=== PATIENT | female | born 1940 | race Caucasian/White ===

== ENCOUNTER 2016-01-28 08:30 | Inpatient (IN) | payer MEDICARE ==
[~2016-01-28] VITALS: Ht 162.6 cm; Wt 104.5 kg
[2016-04-20] MEDS ORDERED: TRIA37.53 PO (11:51)
[2016-04-20] MEDS ORDERED: VENTAER INH (11:51)
[2016-04-20] MEDS ORDERED: VALA500T PO (11:51)
[2016-04-20] MEDS ORDERED: CLAR10CA3 PO (11:51)
[2016-04-20] MEDS ORDERED: MONT10TA4 PO (11:51)
[2016-04-20] MEDS ORDERED: OMEP20TA PO (11:51)
[2016-04-20] MEDS ORDERED: ATOR10TA15 PO (12:06)
[2016-04-20] MEDS ORDERED: ZOLP5TAB3 PO (12:06)
[2016-04-20] MEDS ORDERED: POTA10CA PO (12:06)
[2016-04-21] MEDS: SODIUM CHLORID 0.9% 500 ML IV SCH (09:00)
[2016-04-21] MEDS ORDERED: ceFAZolin 2 GM PREMIX 50 ML IV SCH (09:30)
[2016-04-21] MEDS ORDERED: METOPROLOL TARTRATE 25 MG TAB PO PRN (09:30)
[2016-04-21] MEDS ORDERED: DEXAMETHASONE SOD PHOS 20 MG/5 ML VIAL IV SCH (09:30)
[2016-04-21] MEDS ORDERED: VANCOMYCIN 1000 MG/NS 250 ML (for <70 kg) IV SCH ×2 (09:30)
[2016-04-21] MEDS: POVIDONE IODINE 7.5% SCRUB 118 ML BOTTLE TOP SCH (09:30)
[2016-04-21] MEDS ORDERED: INSULIN HUMAN REGULAR 1,000 UNITS/10 ML VIAL SQ PRN (09:30)
[2016-04-21] MEDS ORDERED: ACET1CAP18 PO (09:57)
[2016-04-21 10:10] VITALS: BP 147/87; PULSE 94; RESP 16; TEMP 97.9; O2SAT 94
[2016-04-21] MEDS: LACTATED RINGER'S 1000 ML IV SCH (10:15)
[2016-04-21] MEDS ORDERED: GENTAMICIN SULFATE 80 MG/2 ML VIAL ONE (10:48)
[2016-04-21] MEDS ORDERED: FAMOTIDINE 20 MG/2 ML VIAL ONE (10:51)
[2016-04-21] MEDS: TRANEXAMIC ACID IV SCH ×2 (11:00→11:06)
[2016-04-21] MEDS: SODIUM CHLORIDE 0.9% IV SCH ×2 (11:00→11:06)
[2016-04-21] MEDS: ROPIVACAINE PERI-ARTICULAR INJECTION. PERIART SCH ×10 (11:00→11:47)
[2016-04-21] MEDS ORDERED: BUPIVACAINE LIPOSOME PF 1.3% 20 ML VIAL ONE (11:46)
[2016-04-21] MEDS ORDERED: SUGAMMADEX SODIUM 200 MG/2 ML VIAL IV PUSH ONE ×2 (12:17)
[2016-04-21] MEDS ORDERED: ACETAMINOPHEN 1000 MG/100 ML VIAL IV ONE (12:17)
[2016-04-21] MEDS ORDERED: PROPOFOL 200 MG/20 ML AMP IV ONE (12:27)
[2016-04-21] MEDS ORDERED: LACTATED RINGER'S 1000 ML INJ 1,000 ML IV ONE (12:27)
[2016-04-21] MEDS ORDERED: ONDANSETRON HCL 4 MG/2 ML VIAL IV PUSH ONE (12:27)
[2016-04-21] MEDS ORDERED: NALOXONE HCL 0.4 MG/ML AMP IV PRN (12:45)
[2016-04-21] MEDS ORDERED: diphenhydrAMINE HCL 50 MG/ML VIAL IV PRN (12:45)
[2016-04-21] MEDS ORDERED: MAGNESIUM HYDROXIDE SUSP 30 ML CUP PO PRN (12:45)
[2016-04-21] MEDS ORDERED: ALBUTEROL SULFATE 90 MCG/ACT HFA 8 GM INHALER INH PRN (12:45)
[2016-04-21] MEDS ORDERED: SODIUM CHLORIDE 0.9% FLUSH 5 ML FLUSH IVF PRN (12:45)
[2016-04-21] MEDS ORDERED: MORPHINE SULFATE 4 MG/ML INJ IV PUSH PRN (12:45)
[2016-04-21] MEDS ORDERED: oxyCODONE/ACETAMINOPHEN 5 MG/325 MG TAB PO PRN (12:45)
[2016-04-21] MEDS ORDERED: BISACODYL 10 MG SUPP PR PRN (12:45)
[2016-04-21] MEDS ORDERED: Post-op Orders (for Pharmacy) MISC XX ONE (12:45)
[2016-04-21] MEDS ORDERED: ONDANSETRON HCL 4 MG/2 ML VIAL IVP PRN (12:45)
[2016-04-21] MEDS ORDERED: ALUMINUM/MAGNESIUM/SIMETH 30 ML CUP PO PRN (12:45)
--- NOTE | 2016-04-21 12:49 | PD.OP ---
cc: Michael Castro MD Operative Report Date of Surgery: Apr 21, 2016 Preoperative Diagnosis: Left knee severe osteoarthritis Postoperative Diagnosis: Same Procedure: Left total knee arthroplasty Anesthesia: Gen. and adductor canal block Surgeon: Michael Castro Medical Billing Specialist(s): OLIVER Montes De Oca The surgical procedure was assisted by my Advanced Registered Nurse Practitioner. My DETAIL MAKER AND FITTER presence was necessary throughout this case for the manipulation and positioning of the surgical extremity. My DETAIL MAKER AND FITTER was assisting me throughout the duration of this procedure. The skill set of an Advance Registered Nurse Practitioner was medically necessary to complete this procedure. During the surgical case, the surgical coder was working at the back table and the Advance Registered Nurse Practitioner was directly assisting me. Operation and Findings: IMPLANTS: DePuy Attune: Patella: size 32. Femur, posterior stabilized size 6 narrow. Tibia, rotating platform size 4. Tibial insert, rotating platform, posterior stabilized size 7 mm thickness. ESTIMATED BLOOD LOSS: 150 cc TOURNIQUET TIME: 37 minutes at 250 mmHg pressure. JUSTIFICATION FOR PROCEDURE: The patient has end-stage osteoarthritis to the knee. There is an attached conservative measures pathway form in the chart that describes the nonoperative measures that were undertaken prior to consideration of surgical management. The patient understood the risks and benefits of surgical management. See my office notes for further details PROCEDURE: The patient was brought back to the operative theatre. Adequate anesthesia was obtained. The patient received intravenous vancomycin and Ancef. The lower extremity was prepped and draped in the usual sterile fashion.The leg was exsanguinated, the tourniquet was raised. A standard anterior incision was performed followed by medial parapatellar arthrotomy was performed. End-stage arthritis was identified. Osteotomy of the patella was performed. We drilled holes for the patella. We trialed the patella component. We placed an intramedullary guide into the distal femur. We ultimately resected 15 mm off of the distal femur in 5 degrees of valgus. The remnants of the ACL and PCL were resected. Osteotomy of the proximal tibia was performed, resecting 5 mm off of the medial side. This was done with 3 degrees of posterior slope using an extramedullary guide. The distal end of the guide was placed in the mid aspect of the ankle. The femur was sized, and four chamfer cuts were completed in 3 of external rotation. We then cut the central box in the distal femur to replace the PCL. We resected the remnants of the menisci and removed osteophytes off of the femur and tibia. We then trialed the knee. We punched the tibia for the keel, and then used standard technique to cement in components. Excess cement was removed. We trialed the knee again and the final polyethylene thickness was chosen to provide extension to 0 degrees, and flexion of 140 degrees to gravity. The ligaments were appropriately balanced. Lateral release was necessary to obtain excellent patellofemoral tracking. The tourniquet was released and adequate hemostasis was obtained. An intra- articular injection of a ropivacaine cocktail was injected. The posterior knee was inspected for excess cement, which was removed. The final polyethylene was put into position after thorough irrigation. We then closed deep fascia with a #2 Stratafix followed by skin with 2-0 Vicryl followed by hellen. Postop plan is to weight-bear as tolerated. DVT prophylaxis will be performed with Marshall, LC larson, early mobilization, and Lovenox followed by aspirin. Michael Castro MD Apr 21, 2016 12:49
[2016-04-21] MEDS ORDERED: ASPI325T PO (12:51)
[2016-04-21] MEDS ORDERED: ENOX40P SQ (12:51)
[2016-04-21] MEDS ORDERED: PERC5TAB12 PO (12:51)
[2016-04-21] MEDS ORDERED: DO NOT ADM ANY ANTICOAGULANT DRUGS XX PRN (13:00)
[2016-04-21] MEDS ORDERED: fentaNYL CITRATE 250 MCG/5 ML AMP ONE (13:04)
[2016-04-21] MEDS ORDERED: MIDAZOLAM HCL 2 MG/2 ML VIAL ONE (13:04)
[2016-04-21] MEDS ORDERED: *HYDROmorphone PF 1 MG VIAL PERIprocedural Use ONLY ONE ×3 (13:30→14:53)
[2016-04-21] MEDS: SODIUM CHLOR 0.9% 1000 ML INJ 1,000 ML IV SCH ×2 (14:00→22:36)
[2016-04-21] MEDS ORDERED: TRANEXAMIC ACID IV SCH (14:00)
[2016-04-21] MEDS ORDERED: SODIUM CHLORIDE 0.9% IV SCH (14:00)
--- NOTE | 2016-04-21 14:33 | RADRPT ---
EXAM DATE/TIME: 04/21/2016 13:36 [place] COMPARISON: No previous studies available for comparison. INDICATIONS : Post left knee surgery. MEDICAL HISTORY : None. SURGICAL HISTORY : None. ENCOUNTER: Initial ACUITY: 1 day PAIN SCORE: 6/10 LOCATION: Left Knee. FINDINGS: The patient is status post total left knee arthroscopy. The processes appears appropriate in position . Expected adjacent post surgical change. CONCLUSION: Status post total left knee arthroplasty with expected postsurgical change.macy Bella MD on April 21, 2016 at 14:30 Board Certified Radiologist. This report was verified electronically.
--- NOTE | 2016-04-21 16:09 | HHI.DCPOC ---
Discharge Care Plan Diagnosis: (1) Status post total knee replacement, left (2) Primary localized osteoarthrosis, lower leg Your Health Problems Are: Difficulty with ADL Goals to Promote Your Health * To prevent worsening of your condition and complications * To maintain your health at the optimal level Directions to Meet Your Goals Take your medications as prescribed Follow your dietary instruction Follow activity as directed Keep your appointments as scheduled Take your immunizations and boosters as scheduled If your symptoms worsen call your PCP, if no PCP go to Urgent Care Center or Emergency Room Smoking is Dangerous to Your Health. Avoid second hand smoke Call the 24-hour hour crisis hotline for domestic abuse at Durga Valentin Apr 21, 2016 16:09
--- NOTE | 2016-04-21 16:10 | HHI.FF ---
Face to Face Verification Diagnosis: (1) Primary localized osteoarthrosis, lower leg (2) Status post total knee replacement, left Physical Therapy Gait training, Transfer training, bed to chair Knee: Total knee Left LE Weight Bearing: WB as tolerated Left LE Range of Motion: Active ROM Nursing Nursing: Shawna teaching, Dressing changes Dressing Changes: Daily dressing change I have seen patient Barbara Potts on 04/21/16. My clinical findings support the need for the requested home health care services because: Limited ability to care for self High risk of falls I certify that my clinical findings support that this patient is homebound because: Post-op weakness Unsteady gait/balance Durga Valentin Apr 21, 2016 16:10
[2016-04-21] MEDS ORDERED: CPMMACHINE (16:12)
[2016-04-21] MEDS ORDERED: WALKER WHEELS/F1 MIS (16:12)
[2016-04-21] MEDS ORDERED: COMMODE 3-IN-11 MIS (16:12)
[2016-04-21] MEDS ORDERED: *RESP: ALBUTEROL 2.5 MG/3 ML NEB (PRN) PERIprocedural Use ONLY NEB ONE (16:25)
[2016-04-21] MEDS ORDERED: LABETALOL HCL 100 MG/20 ML VIAL ONE (17:04)
[2016-04-21] MEDS: oxyCODONE/ACETAMINOPHEN 5 MG/325 MG TAB PO PRN ×2 (17:06→22:34)
[2016-04-21 20:00] VITALS: BP 127/72; PULSE 94; RESP 18; TEMP 95.9; O2SAT 96
[2016-04-21] MEDS: MONTELUKAST SODIUM 10 MG TAB PO SCH (20:08)
[2016-04-21] MEDS: ATORVASTATIN 10 MG TAB PO SCH (20:08)
[2016-04-21] MEDS: SODIUM CHLORIDE 0.9% FLUSH 5 ML FLUSH IVF SCH (20:09)
[2016-04-22] VITALS (8 sets, daily range): BP systolic 103–122; BP diastolic 56–71; PULSE 74–94; RESP 16–18; TEMP 96.3–97.6; O2SAT 92–98
[2016-04-22] MEDS: SODIUM CHLORID 0.9% 500 ML IV SCH (01:40)
[2016-04-22] MEDS: oxyCODONE/ACETAMINOPHEN 5 MG/325 MG TAB PO PRN ×5 (02:56→23:17)
[2016-04-22 05:20] LABS: HEMATOCRIT 33.7 % (35.0-46.0); MEAN CELL VOLUME 90.8 FL (80.0-100.0); MEAN CORPUSCULAR HEMOGLOBIN 30.2 PG (27.0-34.0); MEAN CORPUSCULAR HGB CONC 33.2 % (32.0-36.0); PLATELET COUNT 269 TH/MM3 (150-450); RED BLOOD COUNT 3.71 MIL/MM3 (4.00-5.30); RED CELL DISTRIBUTION WIDTH 15.4 % (11.6-17.2); REVIEW FLAG FINAL; WHITE BLOOD COUNT 17.6 TH/MM3 (4.0-11.0)
[2016-04-22] MEDS ORDERED: DEXAMETHASONE SOD PHOS 20 MG/5 ML VIAL IV ONE (07:45)
[2016-04-22] MEDS: SODIUM CHLOR 0.9% 1000 ML INJ 1,000 ML IV SCH ×2 (09:00→12:50)
[2016-04-22] MEDS: LACTATED RINGER'S 1000 ML IV SCH (09:00)
[2016-04-22] MEDS: TRIAMTERENE/HCTZ 37.5 MG/25 MG CAP PO SCH (09:00)
[2016-04-22] MEDS: SODIUM CHLORIDE 0.9% FLUSH 5 ML FLUSH IVF SCH ×2 (09:00→23:09)
[2016-04-22] MEDS: valACYclovir HCL 500 MG TAB PO SCH (09:02)
[2016-04-22] MEDS: LORATADINE 10 MG TAB PO SCH (09:02)
[2016-04-22] MEDS: PANTOPRAZOLE SOD 20 MG DELAYED RELEASE TAB PO SCH (09:03)
[2016-04-22] MEDS: POTASSIUM CHLORIDE 10 MEQ CAP PO SCH (09:03)
[2016-04-22] MEDS: POVIDONE IODINE 7.5% SCRUB 118 ML BOTTLE TOP SCH (09:30)
[2016-04-22] MEDS: TRANEXAMIC ACID IV SCH (10:21)
[2016-04-22] MEDS: SODIUM CHLORIDE 0.9% IV SCH (10:21)
[2016-04-22] MEDS: ROPIVACAINE PERI-ARTICULAR INJECTION. PERIART SCH ×5 (10:21)
--- NOTE | 2016-04-22 12:19 | PD.ORT.PN ---
Subjective Post Op Day #: 1 Subjective Remarks Patient is OOB in chair with mild to moderate pain. Objective Vitals Vital Signs Date Time Temp Pulse Resp B/P Pulse Ox O2 Delivery O2 Flow Rate FiO2 04/22/16 09:45 98 Nasal Cannula 3.00 04/22/16 08:00 97.0 81 18 106/71 97 04/22/16 07:07 Nasal Cannula 3.00 04/22/16 04:52 96.5 84 18 122/69 96 04/22/16 00:00 97.6 90 17 116/64 97 04/21/16 20:00 95.9 94 18 127/72 96 04/21/16 18:45 97.6 89 16 145/89 95 Nasal Cannula 3 04/21/16 18:15 93 16 149/86 94 Nasal Cannula 3 04/21/16 17:30 88 15 152/92 94 Nasal Cannula 10 45 Face Tent 04/21/16 17:15 89 04/21/16 17:00 100 15 173/102 96 Nasal Cannula 4 04/21/16 16:30 93 15 160/93 96 Nasal Cannula 4 04/21/16 16:00 95 15 157/93 90 Nasal Cannula 4 04/21/16 15:30 98 15 161/89 97 Nasal Cannula 4 04/21/16 15:00 89 14 163/92 92 Simple Mask 6 04/21/16 14:45 98 14 157/90 92 Simple Mask 6 04/21/16 14:30 91 14 156/89 97 Simple Mask 6 04/21/16 14:15 92 13 157/94 92 Nasal Cannula 4 04/21/16 14:00 89 13 158/92 92 Nasal Cannula 4 04/21/16 13:45 88 13 145/84 91 Nasal Cannula 4 04/21/16 13:30 100 12 153/73 92 Nasal Cannula 4 04/21/16 13:16 98.0 94 12 132/83 91 Nasal Cannula 4 I/O 04/21/16 04/21/16 04/21/16 04/22/16 04/22/16 04/22/16 07:00 15:00 23:00 07:00 15:00 23:00 Intake Total 2100 ml 640 ml 480 ml Output Total 350 ml 750 ml 550 ml Balance 1750 ml -110 ml -70 ml Intake Oral 240 ml 480 ml IV Total 400 ml Other 2100 ml Output Urine Total 300 ml 750 ml 550 ml Estimated Blood Loss 50 ml # Bowel Movements 0 Result Diagram: 04/22/16 0454 Imaging Last 24 hours Impressions Knee X-Ray 04/21/16 1245 Signed Impressions: Service Date/Time: Thursday, April 21, 2016 13:36 - CONCLUSION: Status post total left knee arthroplasty with expected postsurgical change.macy Bella MD Procedures Left TKA Objective Remarks The patient's dressing is C/D/I. EHL/TA/G intact. 2+ pedal pulse. + SILT. Minimal swelling. Calf is soft and nontender. Assessment & Plan Ortho Post Op Day #: 1 Problem List: Assessment and Plan POD #1: Left TKA 1. WBAT to the LLE 2. Lovenox for DVT prophylaxis 3. Ice to the left knee PRN 4. Anticipatory discharge to [facility] on Tuesday. Durga Valentin Apr 22, 2016 12:19
[2016-04-22] MEDS: ENOXAPARIN SODIUM 40 MG/0.4 ML SYRINGE SQ SCH (12:25)
--- NOTE | 2016-04-22 13:44 | PD.CONS ---
HPI Service [facility] Consult Requested By Dr. Castro Reason for Consult medical management. Monitor labs, medications, any acute medical issues other than ortho post op. Primary Care Physician Nando Cunningham DO Diagnoses: (1) Primary localized osteoarthrosis, lower leg (2) Status post total knee replacement, left History of Present Illness Patient is a 75 yr. old female with history of severe osteoarthritis left knee. She has been seen per Orthopedics for medical management of the lt. knee, but failed OP treatment regime. Patient states she did have a left knee arthroscopy done in the past, but was told by her Ortho physician she would need further surgery in the future. Patient has a history of HTN , as well as asthma, but denies DM, or any heart disease. Patient was admitted to hospital and as S/P left total knee replacement. We were consulted for medical management during her hopsital stay (Sabiha Valdovinos) Review of Systems ROS Limitations: Other (10 point ROS reviewed, unremarkable ) (Sabiha Valdovinos) Past Family Social History Past Medical History HTN Asthma/COPD Past Surgical History T&A Hysterectomy Bilateral breast biopsy Orthoscopy Lt. Knee Reported Medications Active Medications Albuterol Sulfate (*ALBUTEROL NEB PERIprocedure ONLY) 2.5 mg STK-MED ONCE NEB Last administered on 04/21/16t 16:25; Admin Dose 2.5 MG; Start 04/21/16 at 16:25 ; Stop 04/21/16 at 16:26; Status DC Atorvastatin Calcium (Lipitor) 10 mg HS PO; Start 04/21/16 at 21:00 Cefazolin Sodium/ Sodium Chloride (Ancef Inj/NS Inj) 100 ml @ 200 mls/hr Q6H IV Last administered on 04/22/16 02:56; Admin Dose 200 MLS/HR; Start 04/21/16 at 15:00; Stop 04/22/16 at 03:29; Status DC Dexamethasone Sodium Phosphate (Decadron Inj) 10 mg ONCE ONCE IV; Start at 07:45; Stop 04/22/16 at 07:46; Status DC Docusate Sodium (Colace) 100 mg BID PO; Start 04/22/16 at 21:00 Enoxaparin Sodium 40 mg 40 mg Q24H SQ; Start 04/22/16 at 12:00; Stop 05/01/16 at 12:01 Hydromorphone HCl (*DILAUDID PF INJ PERIprocedural ONLY) 1 mg STK-MED ONCE .ROUTE; Start 04/21/16 at 13:41; Stop 04/21/16 at 13:42; Status DC Hydromorphone HCl (*DILAUDID PF INJ PERIprocedural ONLY) 1 mg STK-MED ONCE .ROUTE; Start 04/21/16 at 14:53; Stop 04/21/16 at 14:54; Status DC IV Flush 2 ml 2 ml BID IVF; Start 04/21/16 at 21:00 Labetalol HCl (Trandate Inj) 100 mg STK-MED ONCE .ROUTE Last administered on 17:04; Admin Dose 5 MG; Start 04/21/16 at 17:04; Stop 04/21/16 at 17:05 ; Status DC Loratadine (Claritin) 10 mg DAILY PO Last administered on 04/22/16 09:02; Admin Dose 10 MG; Start 04/22/16 at 09:00 Montelukast Sodium (Singulair) 10 mg HS PO Last administered on 04/21/16 20:08 ; Admin Dose 10 MG; Start 04/21/16 at 21:00 Multivitamins/ Minerals Therapeutic (Theragran M Tab) 1 tab BID PO; Start at 21:00; Stop 06/21/16 at 20:59 Pantoprazole Sodium (Protonix) 20 mg DAILY PO Last administered on 04/22/16 09: 03; Admin Dose 20 MG; Start 04/22/16 at 09:00 Potassium Chloride (KCl) 10 meq DAILY PO Last administered on 04/22/16 09:03; Admin Dose 10 MEQ; Start 04/22/16 at 09:00 Tranexamic Acid/ Sodium Chloride (Cyklokapron Inj/ NS Inj) 110.46 ml @ 200 mls / hr UNSCH IV Last administered on 04/21/16 15:23; Admin Dose 200 MLS/HR; Start 04/21/16 at 14:00; Stop 04/21/16 at 20:00; Status DC Triamterene/HCTZ (Dyazide 37.5-25 Mg) 1 cap DAILY PO; Start 04/22/16 at 09:00 Valacyclovir HCl (Valtrex) 500 mg DAILY PO Last administered on 04/22/16 09:02 ; Admin Dose 500 MG; Start 04/22/16 at 09:00 (Sabiha Valdovinos) Allergies: Coded Allergies: Hydrocodone (Verified Allergy, Severe, Hives, 04/21/16) Uncoded Allergies: ETHER GAS (Allergy, Unknown, 04/21/16) Active Ordered Medications Active Medications Albuterol Sulfate (*ALBUTEROL NEB PERIprocedure ONLY) 2.5 mg STK-MED ONCE NEB Last administered on 04/21/16 16:25; Admin Dose 2.5 MG; Start 04/21/16 at 16:25 ; Stop 04/21/16 at 16:26; Status DC Atorvastatin Calcium (Lipitor) 10 mg HS PO; Start 04/21/16 at 21:00 Cefazolin Sodium/ Sodium Chloride (Ancef Inj/NS Inj) 100 ml @ 200 mls/hr Q6H IV Last administered on 04/22/16 02:56; Admin Dose 200 MLS/HR; Start 04/21/16 at 15:00; Stop 04/22/16 at 03:29; Status DC Dexamethasone Sodium Phosphate (Decadron Inj) 10 mg ONCE ONCE IV; Start at 07:45; Stop 04/22/16 at 07:46; Status DC Docusate Sodium (Colace) 100 mg BID PO; Start 04/22/16 at 21:00 Enoxaparin Sodium 40 mg 40 mg Q24H SQ; Start 04/22/16 at 12:00; Stop 05/01/16 at 12:01 Hydromorphone HCl (*DILAUDID PF INJ PERIprocedural ONLY) 1 mg STK-MED ONCE .ROUTE; Start 04/21/16 at 13:41; Stop 04/21/16 at 13:42; Status DC Hydromorphone HCl (*DILAUDID PF INJ PERIprocedural ONLY) 1 mg STK-MED ONCE .ROUTE; Start 04/21/16 at 14:53; Stop 04/21/16 at 14:54; Status DC IV Flush 2 ml 2 ml BID IVF; Start 04/21/16 at 21:00 Labetalol HCl (Trandate Inj) 100 mg STK-MED ONCE .ROUTE Last administered on 17:04; Admin Dose 5 MG; Start 04/21/16 at 17:04; Stop 04/21/16 at 17:05 ; Status DC Loratadine (Claritin) 10 mg DAILY PO Last administered on 04/22/16 09:02; Admin Dose 10 MG; Start 04/22/16 at 09:00 Montelukast Sodium (Singulair) 10 mg HS PO Last administered on 04/21/16 20:08 ; Admin Dose 10 MG; Start 04/21/16 at 21:00 Multivitamins/ Minerals Therapeutic (Theragran M Tab) 1 tab BID PO; Start at 21:00; Stop 06/21/16 at 20:59 Pantoprazole Sodium (Protonix) 20 mg DAILY PO Last administered on 04/22/16 09: 03; Admin Dose 20 MG; Start 04/22/16 at 09:00 Potassium Chloride (KCl) 10 meq DAILY PO Last administered on 04/22/16 09:03; Admin Dose 10 MEQ; Start 04/22/16 at 09:00 Tranexamic Acid/ Sodium Chloride (Cyklokapron Inj/ NS Inj) 110.46 ml @ 200 mls / hr UNSCH IV Last administered on 04/21/16 15:23; Admin Dose 200 MLS/HR; Start 04/21/16 at 14:00; Stop 04/21/16 at 20:00; Status DC Triamterene/HCTZ (Dyazide 37.5-25 Mg) 1 cap DAILY PO; Start 04/22/16 at 09:00 Valacyclovir HCl (Valtrex) 500 mg DAILY PO Last administered on 04/22/16 09:02 ; Admin Dose 500 MG; Start 04/22/16 at 09:00 Family History [place] Cancer Social History Prior tobacco abuse, Quit >20 yrs. Social ETOH X 1 wk. No illicit drugs (Sabiha Valdovinos) Physical Exam Vital Signs Vital Signs Date Time Temp Pulse Resp B/P Pulse Ox O2 Delivery O2 Flow Rate FiO2 04/22/16 09:45 98 Nasal Cannula 3.00 04/22/16 08:00 97.0 81 18 106/71 97 04/22/16 07:07 Nasal Cannula 3.00 04/22/16 04:52 96.5 84 18 122/69 96 04/22/16 00:00 97.6 90 17 116/64 97 04/21/16 20:00 95.9 94 18 127/72 96 04/21/16 18:45 97.6 89 16 145/89 95 Nasal Cannula 3 04/21/16 18:15 93 16 149/86 94 Nasal Cannula 3 04/21/16 17:30 88 15 152/92 94 Nasal Cannula 10 45 Face Tent 04/21/16 17:15 89 04/21/16 17:00 100 15 173/102 96 Nasal Cannula 4 04/21/16 16:30 93 15 160/93 96 Nasal Cannula 4 04/21/16 16:00 95 15 157/93 90 Nasal Cannula 4 04/21/16 15:30 98 15 161/89 97 Nasal Cannula 4 04/21/16 15:00 89 14 163/92 92 Simple Mask 6 04/21/16 14:45 98 14 157/90 92 Simple Mask 6 04/21/16 14:30 91 14 156/89 97 Simple Mask 6 04/21/16 14:15 92 13 157/94 92 Nasal Cannula 4 04/21/16 14:00 89 13 158/92 92 Nasal Cannula 4 04/21/16 13:45 88 13 145/84 91 Nasal Cannula 4 04/21/16 13:30 100 12 153/73 92 Nasal Cannula 4 Physical Exam GENERAL: This is a well-nourished ,obese, well-developed patient, in no apparent distress at rest. SKIN: No rashes, ecchymoses or lesions. Cool and dry. HEAD: Atraumatic. Normocephalic. No temporal or scalp tenderness. EYES: Pupils 2mm,equal round and reactive. Extraocular motions intact. No scleral icterus. No injection or drainage. ENT: Nose without bleeding, purulent drainage or septal hematoma. Throat without erythema, tonsillar hypertrophy or exudate. Uvula midline. Airway patent. NECK: Trachea midline. No JVD or lymphadenopathy. Supple, nontender, no meningeal signs. CARDIOVASCULAR: Regular rate and rhythm without murmurs, gallops, or rubs. No pedal edema RESPIRATORY: Clear to auscultation. Breath sounds equal bilaterally. No wheezes , rales, or rhonchi. GASTROINTESTINAL: Abdomen soft, non-tender, nondistended. No hepato-splenomegaly , or palpable masses. No guarding. MUSCULOSKELETAL: Extremities without clubbing, cyanosis, or edema. . No calf tenderness. Negative Homans sign bilaterally. NEUROLOGICAL: Awake and alert X 4. Cranial nerves II through XII intact. Motor and sensory grossly within normal limits. Four out of 5 muscle strength in all muscle groups. Normal speech. Laboratory Laboratory Tests Test 04/22/16 04:54 White Blood Count 17.6 Red Blood Count 3.71 Hemoglobin 11.2 Hematocrit 33.7 Mean Corpuscular Volume 90.8 Mean Corpuscular Hemoglobin 30.2 Mean Corpuscular Hemoglobin 33.2 Concent Red Cell Distribution Width 15.4 Platelet Count 269 Mean Platelet Volume 7.6 (Sabiha Valdovinos) Result Diagram: 04/22/16 0454 Imaging Last Impressions Knee X-Ray 04/21/16 1245 Signed Impressions: Service Date/Time: Thursday, April 21, 2016 13:36 - CONCLUSION: Status post total left knee arthroplasty with expected postsurgical change.macy Bella MD (Sabiha Valdovinos) A/P Diagnosis: (1) HTN (hypertension), benign (2) Primary localized osteoarthrosis, lower leg (3) Status post total knee replacement, left (4) COPD (chronic obstructive pulmonary disease) Assessment and Plan Medical management with Home medication reconcil and monitor vitals signs including any changes in BP. Pain management per ortho PT/OT to follow Monitor any signs and symptoms of pain Ortho following post op needs Add DUOnebs for prn use for any SOB or wheezing DVT precautions GERD precautions Discharge Planning Home vs Rehab plan Discussed With: Nurse, Other (Dr. Kimball, case management) (Sabiha Valdovinos) Assessment and Plan pt is seen & Examine d/w PT d/w Sabiha knee dressing intact /expected mild swelling Neg reynaldo's sign agree w above cont current tx BP control PT ss for d/c planning/possible d/c to SNF in few days (Veronica Kimball MD) Problem Qualifiers (1) Primary localized osteoarthrosis, lower leg: Qualified Code: M17.12 - Primary localized osteoarthrosis, lower leg, left (2) COPD (chronic obstructive pulmonary disease): Sabiha Valdovinos Apr 22, 2016 13:44 Veronica Kimball MD Apr 22, 2016 16:56
[2016-04-22] MEDS ORDERED: RESP: ALBUTEROL 2.5 MG/IPRATROPIUM 0.5 MG NEB (PRN) NEB (13:45)
[2016-04-22] MEDS: ATORVASTATIN 10 MG TAB PO SCH (23:08)
[2016-04-22] MEDS: MULTIVITAMINS/MINERALS THERAPEUTIC TAB PO SCH (23:08)
[2016-04-22] MEDS: DOCUSATE SODIUM 100 MG CAP PO SCH (23:08)
[2016-04-22] MEDS: MONTELUKAST SODIUM 10 MG TAB PO SCH (23:08)
[2016-04-22] MEDS: ZOLPIDEM TARTRATE 5 MG TAB PO PRN (23:50)
[2016-04-23] VITALS: BP 118/72; PULSE 87; RESP 17; TEMP 96.7; O2SAT 96
[2016-04-23] MEDS: SODIUM CHLOR 0.9% 1000 ML INJ 1,000 ML IV SCH ×2 (05:00→15:00)
[2016-04-23 05:47] LABS: HEMATOCRIT 31.6 % (35.0-46.0); MEAN CELL VOLUME 90.9 FL (80.0-100.0); MEAN CORPUSCULAR HEMOGLOBIN 30.6 PG (27.0-34.0); MEAN CORPUSCULAR HGB CONC 33.7 % (32.0-36.0); PLATELET COUNT 231 TH/MM3 (150-450); RED BLOOD COUNT 3.48 MIL/MM3 (4.00-5.30); RED CELL DISTRIBUTION WIDTH 15.8 % (11.6-17.2); REVIEW FLAG FINAL; WHITE BLOOD COUNT 12.9 TH/MM3 (4.0-11.0)
[2016-04-23] MEDS: oxyCODONE/ACETAMINOPHEN 5 MG/325 MG TAB PO PRN ×3 (06:16→16:52)
[2016-04-23 08:00] VITALS: BP 109/57; PULSE 77; RESP 18; TEMP 96.4; O2SAT 90
[2016-04-23] MEDS: LACTATED RINGER'S 1000 ML IV SCH (09:00)
[2016-04-23 09:20] VITALS: O2SAT 98
[2016-04-23] MEDS: POVIDONE IODINE 7.5% SCRUB 118 ML BOTTLE TOP SCH (09:30)
[2016-04-23] MEDS: valACYclovir HCL 500 MG TAB PO SCH (10:06)
[2016-04-23] MEDS: DOCUSATE SODIUM 100 MG CAP PO SCH ×2 (10:06→21:41)
[2016-04-23] MEDS: SODIUM CHLORIDE 0.9% FLUSH 5 ML FLUSH IVF SCH ×2 (10:06→21:41)
[2016-04-23] MEDS: PANTOPRAZOLE SOD 20 MG DELAYED RELEASE TAB PO SCH (10:06)
[2016-04-23] MEDS: POTASSIUM CHLORIDE 10 MEQ CAP PO SCH (10:07)
[2016-04-23] MEDS: LORATADINE 10 MG TAB PO SCH (10:07)
[2016-04-23] MEDS: MULTIVITAMINS/MINERALS THERAPEUTIC TAB PO SCH ×2 (10:07→21:41)
[2016-04-23] MEDS: TRIAMTERENE/HCTZ 37.5 MG/25 MG CAP PO SCH (10:10)
[2016-04-23] MEDS: ENOXAPARIN SODIUM 40 MG/0.4 ML SYRINGE SQ SCH (11:30)
[2016-04-23 12:00] VITALS: BP 110/62; PULSE 87; RESP 18; TEMP 96.3; O2SAT 93
--- NOTE | 2016-04-23 13:03 | HHI.PR ---
Subjective Remarks No chest pain No SOB at rest C/O of mild sore throat status post surgery No headache No diarrhea no constipation. (Sabiha Valdovinos) Objective Objective Results - Vital Signs Date Time Temp Pulse Resp B/P Pulse Ox O2 Delivery O2 Flow Rate FiO2 04/23/16 09:20 98 21 04/23/16 08:00 96.4 77 18 109/57 90 04/23/16 00:00 96.7 87 17 118/72 96 04/22/16 21:40 92 21 04/22/16 20:00 96.8 94 16 103/56 93 04/22/16 16:00 96.6 74 18 106/60 92 I/O 04/22/16 04/22/16 04/22/16 04/23/16 04/23/16 04/23/16 07:00 15:00 23:00 07:00 15:00 23:00 Intake Total 3968 ml 360 ml 240 ml Output Total 850 ml Balance 3118 ml 360 ml 240 ml Intake Oral 1680 ml 360 ml 240 ml IV Total 2288 ml Output Urine Total 850 ml # Voids 1 1 # Bowel Movements 0 0 0 (Sabiha Valdovinos) Result Diagram: 04/23/16 0451 Medications and IVs Active Medications Docusate Sodium (Colace) 100 mg BID PO; Start 04/22/16 at 21:00 Multivitamins/ Minerals Therapeutic (Theragran M Tab) 1 tab BID PO Last administered on 04/23/16t 10:07; Admin Dose 1 TAB; Start 04/22/16 at 21:00; Stop 06/21/16 at 20:59 (Sabiha Valdovinos) ROS General: Weakness, Other (10 point review of ROS done. Positives noted are generalized weakness, sore throat status post surgery . All other systems are negative) HEENT: Sore Throat (Sabiha Valdovinos) Physical Exam Physical Exam PHYSICAL EXAMINATION GENERAL: This is a well-developed, obese, well-nourished female who appears to be in no acute distress. She is alert and awake, sitting up in chair. HEAD: Normocephalic without any lesion or mass noted. Facial features appear symmetric. OROPHARYNGEAL: Oropharynx without erythema or edema, dry. NECK: Supple. No nuchal rigidity or lymphadenopathy. Trachea midline without deviation. CARDIAC: Regular rhythm, regular rate, S1 and S2 are heard. No Murmur ; no gallops or rubs. LUNGS: Clear to auscultation bilaterally. No wheeze noted, no rhonchi or no rales. No use of accessory muscles on inspiration or expiration. ABDOMEN: Obese, Soft, nontender, no organomegaly or masses. Bowel sounds are heard in all four quadrants. No rebound. No guarding edema. Musc/skel: Pulses equal bilateral. No cyanosis. Trace of pedal edema noted bilateral. Knee wrapped with Christian bandage securely. No acute bleeding noted on bandage. NEUROLOGICA: Patient mood and affect appropriate. No focal deficit SKIN:Warm and moist, dry (Sabiha Valdovinos) A/P Diagnosis: (1) HTN (hypertension), benign (2) Primary localized osteoarthrosis, lower leg (3) Status post total knee replacement, left (4) COPD (chronic obstructive pulmonary disease) Assessment and Plan Medical management with Home medication reconcil and monitor vitals signs including any changes in BP. Pain management per ortho PT following Monitor any signs and symptoms of pain Ortho following post op needs Dressing changes for left knee without order Add DUOnebs for prn use for any SOB or wheezing. Dictated to patient for her duo nebs if warranted. Incentive spirometry encouraged and at bedside. DVT precautions GERD precautions She is hopeful to transfer to rehabilitation sometime over the weekend. She is also hopeful that it'll be Tuesday. Formation given to case management. Discussed with nurse Discussed with Dr. Jerome. Patient's seen on his behalf Discharge Planning Home vs Rehab plan Discussed With: Nurse, Other (Dr. Kimball, case management) (Sabiha Valdovinos) Assessment and Plan pt is seen & Examined d/w PT d/w Sabiha francisco w above cont current tx ss for d/.c planning will f/u (Veronica Kimball MD) Problem Qualifiers (1) Primary localized osteoarthrosis, lower leg: Qualified Code: M17.12 - Primary localized osteoarthrosis, lower leg, left (2) COPD (chronic obstructive pulmonary disease): Sabiha Valdovinos Apr 23, 2016 13:03 Veronica Kimball MD Apr 23, 2016 15:12
--- NOTE | 2016-04-23 14:40 | PD.ORT.PN ---
Subjective Post Op Day #: 2 Subjective Remarks Patient is resting in bed in NAD. Patient states her pain is better today. Objective Vitals Vital Signs Date Time Temp Pulse Resp B/P Pulse Ox O2 Delivery O2 Flow Rate FiO2 04/23/16 09:20 98 21 04/23/16 08:00 96.4 77 18 109/57 90 04/23/16 00:00 96.7 87 17 118/72 96 04/22/16 21:40 92 21 04/22/16 20:00 96.8 94 16 103/56 93 04/22/16 16:00 96.6 74 18 106/60 92 I/O 04/22/16 04/22/16 04/22/16 04/23/16 04/23/16 04/23/16 07:00 15:00 23:00 07:00 15:00 23:00 Intake Total 3968 ml 360 ml 240 ml Output Total 850 ml Balance 3118 ml 360 ml 240 ml Intake Oral 1680 ml 360 ml 240 ml IV Total 2288 ml Output Urine Total 850 ml # Voids 1 1 # Bowel Movements 0 0 0 Result Diagram: 04/23/16 0451 Imaging Last 24 hours Impressions Knee X-Ray 04/21/16 1245 Signed Impressions: Service Date/Time: Thursday, April 21, 2016 13:36 - CONCLUSION: Status post total left knee arthroplasty with expected postsurgical change.macy Bella MD Procedures Left TKA Objective Remarks The patient's dressing is changed with no active drainage. Incision is well approximated with surgical clips intact. No s/s of infection or redness. 2+ pedal pulse. + SILT. Mild swelling. Calf is soft and nontender. Assessment & Plan Ortho Post Op Day #: 2 Problem List: Assessment and Plan POD #2: Left TKA 1. WBAT to the LLE 2. Lovenox for DVT prophylaxis 3. Ice to the left knee PRN 4. Anticipatory discharge to [facility] on Tuesday. Durga Valentin Apr 23, 2016 14:40
[2016-04-23 16:00] VITALS: BP 113/69; PULSE 91; RESP 18; TEMP 96.8; O2SAT 93
[2016-04-23 20:00] VITALS: BP 135/70; PULSE 93; RESP 24; TEMP 97.9; O2SAT 94
[2016-04-23] MEDS: ATORVASTATIN 10 MG TAB PO SCH (21:41)
[2016-04-23] MEDS: MONTELUKAST SODIUM 10 MG TAB PO SCH (21:41)
[2016-04-24] VITALS: BP 137/68; PULSE 106; RESP 16; TEMP 99.7; O2SAT 92
[2016-04-24] MEDS: ZOLPIDEM TARTRATE 5 MG TAB PO PRN (00:13)
[2016-04-24] MEDS: oxyCODONE/ACETAMINOPHEN 5 MG/325 MG TAB PO PRN ×3 (00:38→11:41)
[2016-04-24 04:00] VITALS: BP 144/65; PULSE 100; RESP 20; TEMP 98.3; O2SAT 90
[2016-04-24 06:55] LABS: HEMATOCRIT 32.5 % (35.0-46.0); MEAN CORPUSCULAR HEMOGLOBIN 30.1 PG (27.0-34.0); MEAN CORPUSCULAR HGB CONC 32.8 % (32.0-36.0); PLATELET COUNT 260 TH/MM3 (150-450); RED BLOOD COUNT 3.53 MIL/MM3 (4.00-5.30); RED CELL DISTRIBUTION WIDTH 15.8 % (11.6-17.2); REVIEW FLAG FINAL; WHITE BLOOD COUNT 12.4 TH/MM3 (4.0-11.0)
--- NOTE | 2016-04-24 06:58 | PD.ORT.PN ---
Subjective Subjective Remarks Resting comfortably. No new complaints. No bowel movement as of yet Objective Vitals Vital Signs Date Time Temp Pulse Resp B/P Pulse Ox O2 Delivery O2 Flow Rate FiO2 04/24/16 04:00 98.3 100 20 144/65 90 04/24/16 00:00 99.7 106 16 137/68 92 04/23/16 20:00 97.9 93 24 135/70 94 04/23/16 16:00 96.8 91 18 113/69 93 04/23/16 12:00 96.3 87 18 110/62 93 04/23/16 09:20 98 21 04/23/16 08:00 96.4 77 18 109/57 90 I/O 04/23/16 04/23/16 04/23/16 04/24/16 04/24/16 04/24/16 07:00 15:00 23:00 07:00 15:00 23:00 Intake Total 240 ml 1200 ml 240 ml 480 ml Balance 240 ml 1200 ml 240 ml 480 ml Intake Oral 240 ml 1200 ml 240 ml 480 ml # Voids 1 3 1 2 # Bowel Movements 0 0 0 0 Result Diagram: 04/24/16 0605 Imaging Last 24 hours Impressions Knee X-Ray 04/21/16 1245 Signed Impressions: Service Date/Time: Thursday, April 21, 2016 13:36 - CONCLUSION: Status post total left knee arthroplasty with expected postsurgical change.macy Bella MD Procedures Left TKA Objective Remarks The patient's dressing is changed with no active drainage. Incision is well approximated with surgical clips intact. No s/s of infection or redness. 2+ pedal pulse. + SILT. Mild swelling. Calf is soft and nontender. Assessment & Plan Assessment and Plan POD #3: Left TKA 1. WBAT to the LLE 2. Lovenox for DVT prophylaxis 3. Ice to the left knee PRN 4. Anticipatory discharge to [facility] on Tuesday. Laxative of choice- once also bowel movement discharge to rehabilitation VALENTIN SOUSA PA-C Apr 24, 2016 06:58
[2016-04-24 08:00] VITALS: BP 132/66; PULSE 87; RESP 18; TEMP 97.9; O2SAT 94
[2016-04-24] MEDS: valACYclovir HCL 500 MG TAB PO SCH (08:15)
[2016-04-24] MEDS: MULTIVITAMINS/MINERALS THERAPEUTIC TAB PO SCH (08:16)
[2016-04-24] MEDS: PANTOPRAZOLE SOD 20 MG DELAYED RELEASE TAB PO SCH (08:16)
[2016-04-24] MEDS: DOCUSATE SODIUM 100 MG CAP PO SCH (08:16)
[2016-04-24] MEDS: TRIAMTERENE/HCTZ 37.5 MG/25 MG CAP PO SCH (08:16)
[2016-04-24] MEDS: LORATADINE 10 MG TAB PO SCH (08:16)
[2016-04-24] MEDS: POTASSIUM CHLORIDE 10 MEQ CAP PO SCH (08:17)
[2016-04-24] MEDS ORDERED: BENZOCAINE-MENTHOL (SUGAR FREE) 15 MG-3.6 MG LOZENGE BUCCAL PRN (08:45)
--- NOTE | 2016-04-24 08:50 | HHI.PR ---
Subjective Remarks No chest pain No SOB at rest C/O of mild sore throat status post surgery No headache No BM since admission. (Sabiha Valdovinos) Objective Objective Results - Vital Signs Date Time Temp Pulse Resp B/P Pulse Ox O2 Delivery O2 Flow Rate FiO2 04/24/16 04:00 98.3 100 20 144/65 90 04/24/16 00:00 99.7 106 16 137/68 92 04/23/16 20:00 97.9 93 24 135/70 94 04/23/16 16:00 96.8 91 18 113/69 93 04/23/16 12:00 96.3 87 18 110/62 93 04/23/16 09:20 98 21 I/O 04/23/16 04/23/16 04/23/16 04/24/16 04/24/16 04/24/16 07:00 15:00 23:00 07:00 15:00 23:00 Intake Total 240 ml 1200 ml 240 ml 480 ml Balance 240 ml 1200 ml 240 ml 480 ml Intake Oral 240 ml 1200 ml 240 ml 480 ml # Voids 1 3 1 2 # Bowel Movements 0 0 0 0 (Sabiha Valdovinos) Result Diagram: 04/24/16 0605 Medications and IVs Added Cepacol lozenges (Sabiha Valdovinos) ROS General: Other (10 point ROS done. Positives include sore throat, and some mild hoarseness. Patient also has constipation/no BM since admission. This is day 3. All other systems are negative or unremarkable) HEENT: Sore Throat GI: Other (constipation. No BM since Admission) (Sabiha Valdovinos) Physical Exam Physical Exam Physical Exam PHYSICAL EXAMINATION GENERAL: This is a well-developed, obese, well-nourished female who appears to be in no acute distress. She is alert and awake, sitting up in chair with legs elevated. Splint on lt. leg. HEAD: Normocephalic without any lesion or mass noted. Facial features appear symmetric. OROPHARYNGEAL: Oropharynx with mild erythema or edema, dry. No exudate noted. NECK: Supple. No nuchal rigidity or lymphadenopathy. Trachea midline without deviation. CARDIAC: Regular rhythm, regular rate, S1 and S2 are heard. No Murmur ; no gallops or rubs. LUNGS: Clear to auscultation bilaterally. No wheeze noted, no rhonchi or no rales. No use of accessory muscles on inspiration or expiration. ABDOMEN: Obese, Soft, nontender, no organomegaly or masses. Bowel sounds are heard in all four quadrants. No rebound. No guarding edema. Musc/skel: Pulses equal bilateral. No cyanosis. Trace of pedal edema noted bilateral. Knee wrapped with Christian bandage securely. No acute bleeding noted on bandage. NEUROLOGICA: Patient mood and affect appropriate. No focal deficit SKIN:Warm and moist, dry Objective Remarks I feel ok, just cant sleep in that bed. Throat is aliitle sore and Im hoarse. ( Sabiha Valdovinos) A/P Diagnosis: (1) HTN (hypertension), benign (2) Primary localized osteoarthrosis, lower leg (3) Status post total knee replacement, left (4) COPD (chronic obstructive pulmonary disease) (5) Asthma (6) Constipation Assessment and Plan Medical management with Home medication reconcil and monitor vitals signs including any changes in BP which has been stable since admission. She did note temp of 100 in the past 24 hours. Pain management per ortho PT following Monitor any signs and symptoms of pain Ortho following post op needs Left knee and 10 use with light dressing and splint while patient is sleeping. Nurse informed patient to remove splint while up. Patient has mild sore throat as well as mild hoarseness. Cepacol lozenges ordered every 2 and when necessary at bedside. Add DUOnebs for prn use for any SOB or wheezing. Has taken 1 treatment on request. Dictated to patient for her duo nebs if warranted. Incentive spirometry encouraged and at bedside. DVT precautions GERD precautions Bowel management. Patient needs to have BM before she can transfer to [facility] for her rehabilitation. Medications being given. She is hopeful to transfer to rehabilitation after [facility] sometime over the weekend. She is also hopeful that it'll be Tuesday. Formation given to case management. Before transfer patient will need to have bowel movement. Her nurse mixed up a cocktail which included prune juice this a.m. Discussed with nurse Discussed with Dr. Jerome. Patient's seen on his behalf Discharge Planning Rehab plan at [facility]. Discussed With: Nurse, Other (Dr. Kimball, case management) (Sabiha Valdovinos) Assessment and Plan pt is seen & Examined d/w PT feels better/ moved bowel today pain in control d/w Sabiha medically stable for d/c to SNF f/u pcp (Veronica Kimball MD) Problem Qualifiers (1) Primary localized osteoarthrosis, lower leg: Qualified Code: M17.12 - Primary localized osteoarthrosis, lower leg, left (2) COPD (chronic obstructive pulmonary disease): Qualified Code: J42 - Chronic bronchitis, unspecified chronic bronchitis type (3) Asthma: Qualified Code: J45.20 - Mild intermittent asthma without complication (4) Constipation: Qualified Code: K59.01 - Slow transit constipation Sabiha Valdovinos Apr 24, 2016 08:49 Veronica Kimball MD Apr 24, 2016 10:39
[2016-04-24] MEDS: ENOXAPARIN SODIUM 40 MG/0.4 ML SYRINGE SQ SCH (11:40)
[2016-04-24 12:00] VITALS: BP 132/66; PULSE 90; RESP 18; TEMP 97.9; O2SAT 92
--- NOTE | 2016-04-25 18:51 | HHI.DS ---
Discharge Summary Admission Date Apr 21, 2016 at 08:40 Discharge Date: Apr 24, 2016 Admitting Diagnosis OA of the left knee Status post left TKA Diagnosis: (1) Primary localized osteoarthrosis, lower leg Diagnosis: Principal (2) Status post total knee replacement, left Diagnosis: Principal Procedures Left TKA Brief History This is a 75 year old female patient with severe OA of the left knee CBC/BMP: 04/24/16 0605 Significant Findings Laboratory Tests Test 04/23/16 04/24/16 04:51 06:05 White Blood Count 12.9 TH/MM3 12.4 TH/MM3 (4.0-11.0) (4.0-11.0) Red Blood Count 3.48 MIL/MM3 3.53 MIL/MM3 (4.00-5.30) (4.00-5.30) Hemoglobin 10.6 GM/DL 10.6 GM/DL (11.6-15.3) (11.6-15.3) Hematocrit 31.6 % 32.5 % (35.0-46.0) (35.0-46.0) PE at Discharge The patient's dressing is changed with no active drainage. Incision is well approximated with surgical clips intact. No s/s of infection or redness. 2+ pedal pulse. + SILT. Mild swelling. Calf is soft and nontender. Hospital Course The patient was admitted to the hospital with severe OA of the left knee to have a left TKA. The patient's surgery went well with no complication. The patient had a normal hospital course. The patient is WBAT. The patient was discharged to SNF and will f/u with Dr. Castro in 1-2 weeks. Pt Condition on Discharge: Stable Discharge Disposition: Discharge to SNF Discharge Instructions Diet Instructions: As Tolerated, No Restrictions Activities You Can Perform: Weight Bearing as Cornelia Activities to Avoid: Strenuous Activity Follow up Referrals: Orthopedics with Michael Castro MD New Medications: Aspirin (Aspirin) 325 Mg Tab 325 MG PO DAILY Start Aspirin after Lovenox is completed. Prevent Blood Clot # 30 Ref 0 TAB Commode 3-in-1 (Commode 3-in-1) 1 Mis Mis 1 EA .ROUTE DIRECTED #1 Ref 0 EA CPM-Continuous Passive Motion Machine (CPM-Continuous Passive Motion Machine) 1 Ea Device 1 EA .ROUTE DIRECTED #1 Ref 0 EA Enoxaparin Inj (Lovenox Inj) 40 Mg/0.4 Ml Syr 40 MG SQ DAILY Start Aspirin after Lovenox is completed. Blood Clot Prevention # 10 Ref 0 SYRINGE Oxycodone-Acetaminophen (Percocet) 5-325 mg Tab 1-2 TAB PO Q4H PRN PAIN #60 Ref 0 TAB Walker with Front Wheels (Walker with Front Wheels) 1 Mis Mis 1 EA .ROUTE DIRECTED #1 Ref 0 EA Continued Medications: Albuterol 18 GM Inh (Ventolin Hfa 18 GM Inh) 90 Mcg/Act Aer 2 PUFF INH Q4-6H PRN SHORTNESS OF BREATH #1 Ref 0 INHALER Atorvastatin (Atorvastatin) 10 Mg Tab 10 MG PO HS Cholesterol Management #30 Ref 0 TAB Loratadine (Claritin) 10 Mg Cap 10 MG PO DAILY Allergy Management Ref 0 CAP Montelukast (Montelukast) 10 Mg Tab 10 MG PO HS #30 Ref 0 TAB Omeprazole (Omeprazole) 20 Mg Tab 20 MG PO DAILY #30 Ref 0 TAB Potassium Chloride ER (Potassium Chloride ER) 10 Meq Cap 10 MEQ PO DAILY Electrolyte Replacement #30 Ref 0 CAP Triamterene-Hydrochlorothiazide (Triamterene-Hydrochlorothiazide) 37.5-25 Mg Cap 1 CAP PO DAILY #30 Ref 0 CAP Valacyclovir (Valacyclovir) 500 Mg Tab 500 MG PO DAILY Mgmt Viral Infection #30 Ref 0 TAB Zolpidem (Zolpidem) 5 Mg Tab 5 MG PO HS PRN INSOMNIA Ref 0 TAB Discontinued Medications: Acetaminophen (Tylenol) 325 Mg Cap 650 MG PO Q6H PRN PAIN SCALE 1 TO 4 Ref 0 CAP Durga Valentin Apr 25, 2016 18:50
== END 2016-04-24 14:08 | DRG 470 ==
LOC: HSDI 04-21 08:40 → N06B 04-21 18:59
PROVIDERS: ADMIT Orthopaedic Surgery; ATTEND Orthopaedic Surgery
PROC: 3E0T3CZ (ICD-10-PCS; 2016-04-21)
PROC: 0SRD0J9 Replacement of Left Knee Joint with Synthetic Substitute, Cemented, Open Approach (ICD-10-PCS; principal; 2016-04-21 11:03)
DX: M17.12 Unilateral primary osteoarthritis, left knee (principal); J44.9 Chronic obstructive pulmonary disease, unspecified; I10 Essential (primary) hypertension; J45.20 Mild intermittent asthma, uncomplicated; K59.01 Slow transit constipation; Z87.891 Personal history of nicotine dependence
CPT/HCPCS: 73560; 85027; 86850; 86900; 86901; 94150; 94664; C1776; C9290; J0131; J0171; J0690; J0735; J1100; J1170; J1580; J1650; J1885; J2250; J2405; J2795; J3010; J3370; J7030; J7040; J7050; J7120; J7613; L1830